=== PATIENT | female | born 1995 | race Caucasian/White ===

== ENCOUNTER 2018-06-01 20:59 | Emergency (ER) | payer MEDICAID, OTHER ==
[~2018-06-01 20:59] MED LIST: TIZA4CAP3 PO
--- NOTE | 2018-06-01 21:16 | ER Report ---
History and Physical Time Seen By MD: 21:16 Hx. of Stated Complaint: PT REPORTS HEAVIER MENSTRUAL FLOW THAN NORMAL. PT REPORTS GOING THROUGH [facility] EVERY HOUR. HPI/ROS CHIEF COMPLAINT: heavy bleeding with period, right pelvic pain, dizziness HISTORY OF PRESENT ILLNESS: This is a 23 year old female. She has been on her period for several days now. Heavier than normal with associated right pelvic pain. She is using a tampon every hour. Delta dizzy when standing. No fevers. Is on time for her period. Does not usually have heavy periods, and usually only mild cramping if any pain during menses. No urinary pain or frequency. No diarrhea or constipation. No other bleeding such as bruising or bloody noses. Took some Iron today along with vitamin C. Had tried getting a contraceptive shot in November, but did not like the way it worked so has not used. No period for a couple of months, but then resumed regularly. No prior history of problems with menses otherwise. No chest pain. No shortness of breath. Mild nausea, no vomiting. Allergies: Coded Allergies: Penicillins (Verified Allergy, Mild, rash, 06/01/18) Home Meds Active Scripts Norgestimate-Ethinyl Estradiol (ORTHO-CYCLEN) 1 Each Tablet, 2 EACH PO QDAY for 10 Days, #1 PACK 0 Refills Prov:TA AVERY MD 06/02/18 Reported Medications Tizanidine Hcl (TIZANIDINE HCL) 4 Mg Capsule, 4 MG PO QHS, CAPSULE 05/24/16 Reviewed Nurses Notes: Yes Constitutional Vital Sign - Last 24 Hours 06/01/18 06/01/18 06/01/18 06/01/18 21:07 21:08 21:14 21:29 Temp 98.7 Pulse 87 83 77 Resp 18 B/P (MAP) 133/89 (104) 133/89 Pulse Ox 95 96 95 O2 Delivery Room Air 06/01/18 06/01/18 06/01/18 06/01/18 21:30 21:44 21:59 22:00 Pulse 77 80 B/P (MAP) 110/70 (83) 105/54 (71) Pulse Ox 95 98 06/01/18 06/01/18 06/01/18 06/01/18 22:14 22:29 22:30 22:45 Pulse 82 83 74 B/P (MAP) 110/66 (81) Pulse Ox 95 95 93 95 06/01/18 06/01/18 06/01/18 06/01/18 23:00 23:15 23:30 23:45 Pulse 80 85 75 B/P (MAP) 106/61 (76) 103/64 (77) Pulse Ox 92 94 93 93 06/02/18 06/02/18 06/02/18 00:00 00:15 00:28 Pulse 71 B/P (MAP) 109/74 (86) 107/66 (80) Pulse Ox 92 Intake and Output 06/01/18 06/01/18 06/02/18 14:59 22:59 06:59 Intake Total 1000 ml Balance 1000 ml Physical Exam General Appearance: The patient is alert. Mild distress. Non-toxic in appearance. Eyes: Pupils are equal, round. No pallor, injection or icterus. ENT: Mucous membranes are moist. Normal oral mucosa. Posterior oropharynx is normal. Respiratory: Lungs are clear, breathing easily. Cardiovascular: Regular rate and rhythm. No murmurs, gallops or rubs. Normal capillary refill. No edema. Gastrointestinal: Abdomen is soft, tender in right lower quadrant. Nondistended. Normal active bowel sounds. No CVA tenderness with percussion. Neurological: Alert and oriented x3. No focal neurologic deficits Skin: Warm and dry. Musculoskeletal: Extremities are nontender. No tenderness in palpation of the cervical, thoracic and lumbar spine. DIFFERENTIAL DIAGNOSIS: After history and physical exam, differential diagnosis was considered for heavy menstrual bleeding with right sided abdominal pain, needing to rule out ovarian cyst, torsion, abnormally heavy bleeding with her period, less likely to be appendicitis Pelvic exam: The vulva was normal no lesions. The vagina had bleeding but no other discharge. The cervix was closed with some oozing from the cervix, no purulent drainage. No cervical motion tenderness. The uterus was normal size and non tender. The adnexa had no masses, there was some tenderness in the right adnexa. The exam was performed with a lump receiver. Medical Decision Making Data Points Result Diagram: 06/01/18211206/01/182112 Laboratory Hematology Test 06/01/18 21:13 Red Blood Count 4.70 M/uL (4.17-5.56) Mean Corpuscular Volume 92.3 fL (80.0-96.0) Mean Corpuscular Hemoglobin 31.6 pg (26.0-33.0) Mean Corpuscular Hemoglobin Concent 34.3 g/dL (32.0-36.0) Red Cell Distribution Width 13.0 % (11.5-14.5) Mean Platelet Volume 8.6 fL (7.2-11.1) Neutrophils (%) (Auto) 47.4 % (39.4-72.5) Lymphocytes (%) (Auto) 39.8 % (17.6-49.6) Monocytes (%) (Auto) 10.1 % (4.1-12.4) Eosinophils (%) (Auto) 1.7 % (0.4-6.7) Basophils (%) (Auto) 1.0 % (0.3-1.4) Nucleated RBC Relative Count (auto) 0.5 /100WBC Neutrophils # (Auto) 3.8 K/uL (2.0-7.4) Lymphocytes # (Auto) 3.2 K/uL (1.3-3.6) Monocytes # (Auto) 0.8 K/uL (0.3-1.0) Eosinophils # (Auto) 0.1 K/uL (0.0-0.5) Basophils # (Auto) 0.1 K/uL (0.0-0.1) Nucleated RBC Absolute Count (auto) 0.04 K/uL Prothrombin Time 12.6 seconds (12.0-14.4) Prothromb Time International Ratio 0.95 Activated Partial Thromboplast Time 29 seconds (23-35) Sodium Level 139 mmol/L (137-145) Potassium Level 3.5 mmol/L (3.5-5.0) Chloride Level 105 mmol/L (98-107) Carbon Dioxide Level 25 mmol/L (22-31) Blood Urea Nitrogen 11 mg/dl (7-18) Creatinine 0.80 mg/dl (0.52-1.04) Glomerular Filtration Rate Calc > 60.0 Random Glucose 81 mg/dl (75-110) Calcium Level 9.7 mg/dl (8.4-10.2) Total Bilirubin 1.4 mg/dl (0.2-1.3) Aspartate Amino Transf (AST/SGOT) 25 U/L (0-35) Alanine Aminotransferase (ALT/SGPT) 23 U/L (0-56) Alkaline Phosphatase 81 U/L (0-126) Total Protein 7.7 g/dl (6.3-8.2) Albumin 4.9 g/dl (3.5-5.0) Human Chorionic Gonadotropin, Qual Negative (NEGATIVE) Chemistry Test 06/01/18 21:13 White Blood Count 8.0 k/uL (4.5-11.0) Red Blood Count 4.70 M/uL (4.17-5.56) Hemoglobin 14.9 g/dL (12.0-16.0) Hematocrit 43.4 % (34.0-47.0) Mean Corpuscular Volume 92.3 fL (80.0-96.0) Mean Corpuscular Hemoglobin 31.6 pg (26.0-33.0) Mean Corpuscular Hemoglobin Concent 34.3 g/dL (32.0-36.0) Red Cell Distribution Width 13.0 % (11.5-14.5) Platelet Count 249 K/uL (150-450) Mean Platelet Volume 8.6 fL (7.2-11.1) Neutrophils (%) (Auto) 47.4 % (39.4-72.5) Lymphocytes (%) (Auto) 39.8 % (17.6-49.6) Monocytes (%) (Auto) 10.1 % (4.1-12.4) Eosinophils (%) (Auto) 1.7 % (0.4-6.7) Basophils (%) (Auto) 1.0 % (0.3-1.4) Nucleated RBC Relative Count (auto) 0.5 /100WBC Neutrophils # (Auto) 3.8 K/uL (2.0-7.4) Lymphocytes # (Auto) 3.2 K/uL (1.3-3.6) Monocytes # (Auto) 0.8 K/uL (0.3-1.0) Eosinophils # (Auto) 0.1 K/uL (0.0-0.5) Basophils # (Auto) 0.1 K/uL (0.0-0.1) Nucleated RBC Absolute Count (auto) 0.04 K/uL Prothrombin Time 12.6 seconds (12.0-14.4) Prothromb Time International Ratio 0.95 Activated Partial Thromboplast Time 29 seconds (23-35) Glomerular Filtration Rate Calc > 60.0 Calcium Level 9.7 mg/dl (8.4-10.2) Total Bilirubin 1.4 mg/dl (0.2-1.3) Aspartate Amino Transf (AST/SGOT) 25 U/L (0-35) Alanine Aminotransferase (ALT/SGPT) 23 U/L (0-56) Alkaline Phosphatase 81 U/L (0-126) Total Protein 7.7 g/dl (6.3-8.2) Albumin 4.9 g/dl (3.5-5.0) Human Chorionic Gonadotropin, Qual Negative (NEGATIVE) Coagulation Test 06/01/18 21:13 Prothrombin Time 12.6 seconds Prothromb Time International Ratio 0.95 Activated Partial Thromboplast Time 29 seconds EKG/Imaging Imaging TRANSVAGINAL NON-OB HISTORY: Heavy bleeding for 2 days. Right pelvic pain. COMPARISON: None. TECHNIQUE: Endovaginal ultrasound pelvis. Grayscale, color flow Doppler and spectral Doppler were performed. FINDINGS: Uterus: Normal myometrial echotexture. Uterus measures 7.8 x 3.5 x 5.2 cm. Endometrium: Normal echotexture. Endometrial thickness is 3 mm. Ovaries and adnexa: Right: The right ovary is normal in echotexture. It measures 2.4 x 1.8 x 2.7 cm. There is normal ovarian venous and arterial flow, and normal arterial and venous waveforms are demonstrated. The right adnexum is normal. Left: The left ovary is normal in echotexture. It measures 3.0 x 1.4 x 2.0 cm. There is normal ovarian arterial and venous flow, and normal venous and arterial waveforms are demonstrated. The left adnexum is normal. Free pelvic fluid: None. IMPRESSION: 1. Normal pelvic ultrasound without findings to account for patient's symptoms. Report Dictated By: Rosangela Tamez at 06/01/2018 11:44 PM ED Course/Re-evaluation Clinical Indication for ER IV: Hydration, IV Access ED Course Evaluation as noted. Ultrasound obtained after labs back, negative HCG. No acute problems noted. Reviewed this with the patient. Gave the option of watching and letting period work out on it's own or intervening with oral contraceptives. She is not sure and will likely watch for now. Recommended MORTGAGE LENDER evaluation if continuing to have painful or very painful periods. Decision to Disposition Date: Jun 02, 2018 Decision to Disposition Time: 00:23 Depart Departure Latest Vital Signs Vital Signs Date Time Temp Pulse Resp B/P (MAP) Pulse Ox O2 Delivery O2 Flow Rate FiO2 06/02/18 00:28 107/66 (80) 06/02/18 00:15 71 92 06/01/18 21:08 98.7 18 Room Air Impression: Primary Impression: Episode of heavy vaginal bleeding Additional Impression: Pelvic pain Condition: Improved Disposition: HOME OR SELF-CARE New Scripts Norgestimate-Ethinyl Estradiol (ORTHO-CYCLEN) 1 Each Tablet 2 EACH PO QDAY for 10 Days, #1 PACK 0 Refills Prov: TA AVERY MD 06/02/18 Patient Instructions: Dysfunctional Uterine Bleeding (ED), Pelvic Pain in Women (ED) Additional Instructions: Rest and increase fluid intake over the next few days. You can just watch and let your menstrual cycle run it's course, or you can intervene by taking some hormones in the form of control pills. The control pill would be Ortho-Cyclen, take 2 or 3 pills once a day until the pack is done. This will stop the period and then you will have another per iod once done with the pills, hopefully building dismantler and less painful. If having fevers, worsening pain, nausea/vomiting, you should return for re- evaluation. If having continued episodes of pain with periods and heavy bleeding, you should see MORTGAGE LENDER for further evaluation. Problem Qualifiers TA AVERY MD Jun 01, 2018 21:16
[2018-06-01] MEDS ORDERED: NS(*) 0.9% 1000 ML BAG 1,000 ML IV ONE (21:25)
[2018-06-01 21:36] LABS: INR 0.95
[2018-06-01 21:37] LABS: PLATELET COUNT, AUTOMATED 249 K/uL (150-450)
--- NOTE | 2018-06-01 23:51 | RADIOLOGY IMAGING REPORT ---
FACILITY: [facility] - [place] PATIENT NAME: Salma Benitez : 1995 MR: [id number] V: [id number] EXAM DATE: ORDERING PHYSICIAN: TA AVERY TECHNOLOGIST[place] [facility] [place] Benite[place] : 1995 Visit/Account:[id number] Date of Sevice: 06/01/2018 TRANSVAGINAL NON-OB HISTORY: Heavy bleeding for 2 days. Right pelvic pain. COMPARISON: None. TECHNIQUE: Endovaginal ultrasound pelvis. Grayscale, color flow Doppler and spectral Doppler were per formed. FINDINGS: Uterus: Normal myometrial echotexture. Uterus measures 7.8 x 3.5 x 5.2 cm. Endometrium: Normal echotexture. Endometrial thickness is 3 mm. Ovaries and adnexa: Right: The right ovary is normal in echotexture. It measures 2.4 x 1.8 x 2.7 cm. There is normal ovarian venous and arterial flow, and normal arterial and venous waveforms are demonstrated. The rig ht adnexum is normal. Left: The left ovary is normal in echotexture. It measures 3.0 x 1.4 x 2.0 cm. There is normal o varian arterial and venous flow, and normal venous and arterial waveforms are demonstrated. The left adnexum is normal. Free pelvic fluid: None. IMPRESSION: 1. Normal pelvic ultrasound without findings to account for patient's symptoms. Report Dictated By: Rosangela Tamez at 06/01/2018 11:44 PM Report E-Signed By: Rosangela Tamez at 06/01/2018 11:47 PM WSN:[id number]
[2018-06-02] MEDS ORDERED: NORG1TAB95 PO (00:27)
[2018-06-02 00:28] VITALS: BP 107/66
== END 2018-06-02 00:38 | disposition home or self-care (01) ==
LOC: ER 21:05
DX: N92.0 Excessive and frequent menstruation with regular cycle (principal); R10.2 Pelvic and perineal pain
CPT/HCPCS: 76830; 84703; 85025; 85610; 85730; 99284; J7030; 82040; 82247; 82310; 82374; 82435; 82565; 82947; 84075; 84132; 84155; 84295; 84450; 84460; 84520